=== PATIENT | female | born 1975 | race African-American/Black ===

== ENCOUNTER 2020-10-01 11:32 | Emergency (ER) | payer MEDICAID, MEDICARE ==
[~2020-10-01] VITALS: Ht 160 cm; Wt 70.0 kg
[~2020-10-01 11:32] MED LIST: ALPR2TAB; COG2; OLAN5TAB3
[2020-10-01] MEDS ORDERED: ONDANSETRON HCL 4MG/2ML INJ IV STA (11:38)
[2020-10-01] MEDS ORDERED: FAMOTIDINE 20MG/2ML VIAL IV STA (11:38)
[2020-10-01] MEDS ORDERED: SODIUM CHLORIDE 0.9% 1,000 ML IV ONE (11:45)
[2020-10-01] MEDS ORDERED: MORPHINE SULFATE 4 MG/ML CPJ (NOT FOR IM USE) IV STA (11:48)
[2020-10-01 12:09] LABS: CLARITY URINE CLOUDY (CLEAR); COLOR URINE YELLOW (YELLOW); KETONES URINE TRACE (NEGATIVE); LEUKOCYTE ESTERASE URINE NEGATIVE (NEGATIVE); NITRITE URINE NEGATIVE (NEGATIVE); OCCULT BLOOD URINE NEGATIVE (NEGATIVE); PH URINE 5.5 (4.5-8.0); PROTEIN URINE TRACE (NEGATIVE); SPECIFIC GRAVITY URINE 1.045 (1.005-1.030); UROBILINOGEN URINE 0.2 E.U./dL (0.2-1.0)
[2020-10-01 12:12] LABS: CHLORIDE 106 mEq/L (98-107)
[2020-10-01 12:15] LABS: ETHANOL BLOOD < 10 mg/dL; HCG SCREEN NEGATIVE
[2020-10-01 12:18] LABS: BASOPHILS % 0.6 % (0.0-2.0); EOSINOPHILS % 0.8 % (0.0-5.0); HEMATOCRIT. 43.7 % (36.0-48.0); HEMOGLOBIN. 15.1 g/dL (12.0-16.0); LYMPHOCYTES % 26.8 % (20.0-50.0); MEAN CORPUSCULAR HEMOGLOBIN 29.2 pg (28.0-32.0); MEAN CORPUSCULAR VOLUME 84.6 fL (81.0-99.0); MEAN PLATELET VOLUME 6.8 fl (7.4-10.4); MONOCYTES % 5.4 % (2.0-8.0); NEUTROPHILS % 66.4 % (40.0-76.0); PLATELET 346 x1000/uL (130-400); RED BLOOD CELL COUNT 5.17 mill/uL (4.2-5.4); RED CELL DISTRIBUTION WIDTH 14.5 % (11.6-14.6)
[2020-10-01 12:34] LABS: *BARBITURATES SCREEN URINE NEGATIVE (NEGATIVE)
[2020-10-01 12:35] LABS: *AMPHETAMINES SCREEN URINE NEGATIVE (NEGATIVE); *COCAINE SCREEN URINE NEGATIVE (NEGATIVE); METHADONE URINE SCREEN NEGATIVE (NEGATIVE); PHENCYCLIDINE URINE SCREEN NEGATIVE (NEGATIVE)
[2020-10-01 12:44] LABS: *BENZODIAZEPINES SCREEN URINE PRESUMTIVE POSITIVE (NEGATIVE); CANNABINOID URINE SCREEN PRESUMTIVE POSITIVE (NEGATIVE); OPIATES URINE SCREEN PRESUMTIVE POSITIVE (NEGATIVE)
[2020-10-01] MEDS ORDERED: MORPHINE SULFATE 4 MG/ML CPJ (NOT FOR IM USE) IV ONE (14:00)
[2020-10-01] MEDS ORDERED: ONDANSETRON HCL 4MG/2ML INJ IV ONE (14:00)
[2020-10-01] MEDS ORDERED: KETOROLAC 30MG/ML VIAL IV ONE (14:30)
[2020-10-01] MEDS ORDERED: OMEP20TA2 MT (16:35)
[2020-10-01] MEDS ORDERED: ONDA4TAB5 MT (16:35)
[2020-10-01 16:49] VITALS: BP 116/74
[2020-10-02] MEDS ORDERED: OMEP40CA12 MT (15:58)
[2020-10-02] MEDS ORDERED: ONDA4TAB5 MT (15:59)
== END 2020-10-01 17:44 | disposition home or self-care (01) ==
LOC: ER 11:32
DX: R10.12 Left upper quadrant pain (principal); E86.0 Dehydration; R11.2 Nausea with vomiting, unspecified; F41.9 Anxiety disorder, unspecified; Z90.49 Acquired absence of other specified parts of digestive tract; Z79.899 Other long term (current) drug therapy
CPT/HCPCS: 36415; 74176; 80053; 80305; 80320; 81003; 81025; 83690; 84703; 85025; 85610; 93005; 96361; 96374; 96375; 99285; J1885; J2270; J2405; J3490; J7030; G0480

== ENCOUNTER 2020-10-02 11:40 | Emergency (ER) | payer MEDICARE ==
[~2020-10-02] VITALS: Ht 154.9 cm; Wt 70.0 kg
[~2020-10-02 11:40] MED LIST changes: +OMEP20TA2 MT; +ONDA4TAB5 MT
[2020-10-02] MEDS ORDERED: ONDANSETRON HCL 4MG/2ML INJ IV STA (12:08)
[2020-10-02] MEDS ORDERED: MAGNESIUM/ALUMINUM HYDROXIDE/SIMETHICONE 30ML UDC PO STA (12:08)
[2020-10-02] MEDS ORDERED: KETOROLAC 30MG/ML VIAL IV STA (12:08)
[2020-10-02] MEDS ORDERED: SODIUM CHLORIDE 0.9% 1,000 ML IV ONE (12:15)
[2020-10-02 13:43] LABS: CHLORIDE 110 mEq/L (98-107)
[2020-10-02 14:58] LABS: BASOPHILS % 0.7 % (0.0-2.0); EOSINOPHILS % 0.5 % (0.0-5.0); HEMOGLOBIN. 13.7 g/dL (12.0-16.0); MEAN PLATELET VOLUME 6.9 fl (7.4-10.4); MONOCYTES % 8.6 % (2.0-8.0); NEUTROPHILS % 53.2 % (40.0-76.0); PLATELET 365 x1000/uL (130-400); RED CELL DISTRIBUTION WIDTH 14.2 % (11.6-14.6)
[2020-10-02] MEDS ORDERED: OMEP40CA12 MT (15:58)
[2020-10-02] MEDS ORDERED: ONDA4TAB5 MT (15:59)
[2020-10-02] MEDS ORDERED: ACETAMINOPHEN WITH CODEINE 300/30MG TABLET PO ONE (16:15)
[2020-10-02 16:16] VITALS: BP 146/94
== END 2020-10-02 16:31 | disposition home or self-care (01) ==
LOC: ER 11:40
DX: R10.13 Epigastric pain (principal); F41.9 Anxiety disorder, unspecified; Z90.710 Acquired absence of both cervix and uterus; Z90.49 Acquired absence of other specified parts of digestive tract
CPT/HCPCS: 36415; 74181; 80053; 83690; 85025; 96361; 96374; 96375; 99284; J1885; J2405; J7030